=== PATIENT | female | born 1940 | race Caucasian/White ===

== ENCOUNTER → 2024-04-06 10:29 | Outpatient (REF) | payer MEDICARE, MEDICAID, SELFPAY ==
[2024-04-06 12:10] LABS: Glycohemoglobin (HgbA1c) 5.5 % (4.0-5.6)
== END ==
LOC: OLABN 10:29
PROVIDERS: ATTENDING PHYSICIAN Internal Medicine Geriatric Medicine
DX: E78.5 Hyperlipidemia, unspecified (principal); E16.2 Hypoglycemia, unspecified
CPT/HCPCS: 36415; 83036

== ENCOUNTER → 2024-11-22 19:15 | Outpatient (REF) | payer MEDICARE, MEDICAID, SELFPAY ==
[2024-11-23 11:53] LABS: ALT (SGPT) 71 U/L (0-35); AST (SGOT) 111 U/L (14-36); Albumin 3.8 g/dl (3.5-5.0); Alkaline Phosphatase 233 U/L (38-126); Blood Urea Nitrogen 30 mg/dl (7-17); Calcium 9.5 mg/dl (8.4-10.2); Carbon Dioxide 21 mmol/L (22-30); Chloride 111 mmol/L (98-107); Glucose 100 mg/dl (70-99); Potassium 4.4 mmol/L (3.5-5.1); Sodium 143 mmol/L (135-145); eGFR > 60.00
[2024-11-23 12:09] LABS: Band Neutrophils 16 % (0-3); Hematocrit 37.8 % (37.0-47.0); Lymphocytes 5 % (20-51); Mean Corp Hgb Conc. 31.7 g/dL (33.0-37.0); Mean Corpuscular Volume 88.1 fL (81.0-99.0); Mean Platelet Volume 12.8 fL (7.4-10.4); Monocytes 1 % (2-9); Platelet Count 288 10^3/uL (130-400); Red Blood Cell Count 4.29 10^6/uL (4.20-5.40); Segmented Neutrophils 78 % (42-75); White Blood Cell Count 14.9 10^3/uL (4.8-10.8)
[2024-11-23 12:11] LABS: Normal RBC Morphology Yes; Platelets Checked Yes; Total Cells Counted 100
[2024-11-23 13:35] LABS: Urine Albumin 4+ (Neg - Trace); Urine Bilirubin Negative (Negative); Urine Character Cloudy (Clear); Urine Color Amber; Urine Glucose Negative (Negative); Urine Ketone Negative (Negative); Urine Leukocyte 3+ (Negative); Urine Nitrite Negative (Negative); Urine Occult Blood 2+ (Negative); Urine Urobilinogen Negative (Neg - 1+)
[2024-11-23 13:46] LABS: Urine Bacteria Many (Negative); Urine Squamous Cell 0-2 /LPF (Few)
[2024-11-23 13:47] LABS: Urine White Cell 16-20 /HPF (0-5)
== END ==
LOC: OLABN 19:15
PROVIDERS: ATTENDING PHYSICIAN Internal Medicine Geriatric Medicine
DX: N18.9 Chronic kidney disease, unspecified (principal); A41.9 Sepsis, unspecified organism; R82.90 Unspecified abnormal findings in urine; R50.9 Fever, unspecified
CPT/HCPCS: 36415; 80053; 81003; 81015; 85025; 87086

== ENCOUNTER 2024-11-23 11:48 | Inpatient (IN) | payer OTHER, SELFPAY ==
[2024-11-23] VITALS (9 sets, daily range): BP systolic 77–124; BP diastolic 50–73; BMI 22.0
--- NOTE | 2024-11-23 08:44 | ED.GENMED ---
History of Present Illness
General
Chief Complaint: Fever
Time Seen by Provider: 11/23/24 08:34
History of Present Illness
History of Present Illness:
84-year-old female with history of dementia and chronic kidney disease presenting to the emergency department for fever. Patient arrives from nursing facility, reported to have a fever for the past 24 hours. Last dose of Tylenol was at midnight.
Per group home documentation, patient also has had decreased p.o. intake, was not eating her lunch yesterday, noted to be more sluggish, drooling and less responsive. Patient reportedly hypotensive by nursing facility. Patient unable to comply
with any questioning upon arrival, given her clinical condition and underlying dementia history. Patient arrives with POLST form, DNR/DNI
Phy Exam
Physical Exam
Physical Exam:
General: Well-appearing, no clinical signs of dehydration, nontoxic and in no acute distress
HEENT: protecting airway
Neck: appears supple
CV: Tachycardic, regular rhythm, no evidence of cyanosis
Resp: No accessory muscle use, no increased work of breathing
Abd: Soft and non-distended, no tenderness to palpation
Extremities: No deformities, no swelling
Neuro: alert, not oriented, no verbal communication. Not following commands
: deferred
Rectal: deferred
Psych: Normal affect
Skin: Intact
Sepsis
Sepsis Screening
Sepsis Assessment: Severe Sepsis
Sepsis Screening: Lactate >/=4mmol/L
Sepsis Screen
Sepsis Screen: Severe Sepsis
Date: 11/23/24
Time: 15:40
Course
Orders/Labs/Results
Orders:
Orders
11/23/24 08:35
Acetaminophen [Tylenol/Feverall] 650 mg .ROUTE .STK-MED ONE
11/23/24 08:42
Electrocardiogram (*1) Urgent
Reason for Study: Other
Other Reason for Exam: sepsis
EKG- Treatment ONCE
11/23/24 08:43
0.9% Sodium Chloride 1000 ml [Nss] 1,000 ml IV BOLUS
CR Chest - 2 Views Urgent
Comment:
Reason For Exam: sepsis
11/23/24 08:51
COVID-19 Antigen Urgent
Source: Nasal Swab
Complete Blood Count/With Diff Urgent
Comprehensive Metabolic Panel Urgent
Lactic Acid Q4H
Comment: CANCEL 2nd LACTIC ACID IF 1st LACTIC ACID IS LESS THAN 2
Manual Differential Urgent
PTT Urgent
Prothrombin Time Urgent
Blood Culture Q30M
CELY Source: Blood/Venous
Specimen Description:
Influenza A+B Rapid Molecular Urgent
CELY Source: Nasal Swab
Specimen Description:
11/23/24 08:54
Blood Culture Q30M
CELY Source: Blood/Venous
Specimen Description:
11/23/24 09:01
Urinalysis Reflex To Culture Urgent
Date Specimen was Collected: 11/23/24
Time Specimen was Collected: 08:58
Urine Microscopic Reflex Cult Urgent
Urine Culture Urgent
CELY Source: U
Specimen Description:
Date Specimen was Collected: 11/23/24
Time Specimen was Collected: 08:58
11/23/24 09:05
Acetaminophen [Tylenol/Feverall] 650 mg RECTAL NOW STA
11/23/24 09:39
0.9% Sodium Chloride 1000 ml [Nss] 1,000 ml IV BOLUS
11/23/24 09:42
Cefepime HCl [Maxipime] 2,000 mg IV NOW STA
11/23/24 09:45
Vancomycin [Vancocin] 1,500 mg 0.9% Sodium Chloride 500 ml [Nss] 500 ml IV NOW
11/23/24 11:11
Admit/Transfer Patient As Directed
Co-Sign Provider:
Level of Care: Inpatient admission
Assign to:: Telemetry
Physician / Group: Hospitalist
Diagnosis: sepsis
Reason for Telemetry: Arrhythmia
Date to Stop Telemetry: 11/26/24
Time to Stop Telemetry: 11:00
Reason for Hospitalization: .
Expected length of stay greater than two midnights?: Yes
ELOS- Estimated Length of Stay in days: 3
I certify the patient meets the requirements for IP care: Yes
11/23/24 11:13
Code Status As Directed
Resuscitation Status: Do not resuscitate
Reached after discussion with pt or family/Healthcare POA: Yes
DNR Bracelet Application ONCE
11/23/24 12:44
Acetaminophen [Tylenol/Feverall] 650 mg RECTAL Q6HPRN PRN
Ketorolac [Toradol] 15 mg IV Q8HPRN PRN
11/23/24 12:44
DX Deep Vein Thrombosis Video Routine
11/26/24 11:00
DC Protocol for Telemetry ONCE
Abnormal Lab Results
11/23/24 11/23/24
08:51 09:01
WBC 24.8 H 10^3/uL
(4.8-10.8)
RBC 4.17 L 10^6/uL
(4.20-5.40)
Hct 36.3 L %
(37.0-47.0)
RDW 14.8 H %
(11.5-14.5)
MPV 12.2 H fL
(7.4-10.4)
Abs Neuts (Manual) 23.5 H 10^3/uL
(1.4-6.5)
Segmented Neutrophils 83 H %
(42-75)
Band Neutrophils 12 H %
(0-3)
Lymphocytes (Manual) 2 L %
(20-51)
PT 15.1 H Sec
(11.4-14.6)
Chloride 114 H mmol/L
(98-107)
Carbon Dioxide 17 L mmol/L
(22-30)
BUN 29 H mg/dl
(7-17)
Glucose 123 H mg/dl
(70-99)
Lactic Acid 4.1 H* mmol/L
(0.7-2.0)
AST 86 H U/L
(14-36)
ALT 70 H U/L
(0-35)
Alkaline Phosphatase 199 H U/L
(38-126)
Ur Occult Blood Reflex 4+ A
(Negative)
Leukocyte Esterase Rfl 3+ A
(Negative)
Urine RBC 3-6 A /HPF
(0-2)
Urine WBC (Reflex) 11-15 A /HPF
(0-5)
Urine Bacteria (Reflex) Many A
(Negative)
Urine Albumin (Reflex) 3+ A
(Neg - Trace)
11/23/24 08:51
11/23/24 08:51
Vital Signs
Initial and Last Documented VS:
Initial Vital Signs
Temp Pulse Resp BP Pulse Ox
103.7 F H 152 32 106/65 93
11/23/24 08:37 11/23/24 08:37 11/23/24 08:37 11/23/24 08:37 11/23/24 08:37
Last Documented Vital Signs
Temp Pulse Resp BP Pulse Ox
103.7 F H 127 14 108/57 91
11/23/24 08:37 11/23/24 15:13 11/23/24 15:13 11/23/24 15:13 11/23/24 15:13
MDM/Problems Addressed
MDM/Problems Addressed:
84-year-old female with history of dementia and chronic kidney disease presenting for fever and decreased responsiveness. Vital signs on arrival significant for fever and tachycardia.
On exam, patient is in no acute distress, however is markedly tachycardic and fever meeting SIRS criteria. Unknown source of infection at this time. Will initiate septic workup with laboratory analysis, blood cultures, lactic acid. Will obtain
chest x-ray imaging, urinalysis. No systemic rash. No open wounds or sores. No tenderness to abdomen.
10:30 - with leukocytosis and elevated lactic acid, meeting criteria for severe sepsis. Blood pressure remains stable. Continuing IV fluids at full 30 cc/kg bolus. Urine does show signs of infection, pending chest x-ray. Will start
broad-spectrum antibiotics. In discussion with daughter at bedside, is okay with starting antibiotics at this time, however during admission, would like to begin discussions for potential hospice versus palliative care.
*Critical Care Note
Total Time (30-74mins, 75-104mins- exclusive of procedures): 37
comment:
The high probability of a clinically significant, sudden or life threatening deterioration of the infectious system(s), sepsis, required my full and direct attention, intervention and personal management. The aggregate critical care time was 37
minutes. This time is in addition to time spent performing reported procedures but includes the following:
[x] Data Review and interpretation
[x] Patient assessment and monitoring of vital signs
[x] Documentation
[x] Medication orders and management
ED Attending Note
-
Portions of this chart may have been created with voice recognition software.� Occasional wrong word or��sound alike� substitutions may have occurred due to the inherent limitations of voice recognition software.
Discharge Plan
Departure
Patient Disposition: Admit
Date of Disposition: 11/23/24
Time of Disposition: 11:02
Presentation/result/management discussed w/ accepting MD/DO: Hospitalist
Condition: Fair
Discharge Problem:
Severe sepsis, Urinary tract infection
Interventions
Interventions:
*Risk Screen - Suicide Last Done: 11/23/24 08:37
*General Assessment Last Done: 11/23/24 08:37
*Neglect/Abuse Screening Last Done: 11/23/24 08:37
*ED- Fall Risk Assessment Last Done: 11/23/24 08:49
*ED COVID-19 Vaccine History Last Done: 11/23/24 08:37
*Nursing Disposition Last Done: 11/23/24 14:53
ED- Neurological Assessment Last Done: 11/23/24 09:10
ED-Skin Assessment Last Done: 11/23/24 09:10
Discharge Date and Time
Discharge Date/Time: 11/23/24 14:54
[2024-11-23] MEDS: NSS 1000 IV ×2 (09:00→10:50)
[2024-11-23] MEDS: TYLENOL/FEVERALL 650 MG RECTAL ×2 (09:06→15:15)
[2024-11-23 09:24] LABS: Hematocrit 36.3 % (37.0-47.0); Mean Corp Hgb Conc. 33.1 g/dL (33.0-37.0); Mean Corpuscular Hgb 28.8 pg (27.0-31.0); Mean Corpuscular Volume 87.1 fL (81.0-99.0); Mean Platelet Volume 12.2 fL (7.4-10.4); Platelet Count 285 10^3/uL (130-400); Red Blood Cell Count 4.17 10^6/uL (4.20-5.40); Red Cell Dist. Width 14.8 % (11.5-14.5); White Blood Cell Count 24.8 10^3/uL (4.8-10.8)
[2024-11-23 09:26] LABS: Urine Albumin 3+ (Neg - Trace); Urine Bilirubin Negative (Negative); Urine Character Cloudy (Clear); Urine Color Yellow; Urine Glucose Negative (Negative); Urine Ketone Negative (Negative); Urine Leukocyte 3+ (Negative); Urine Nitrite Negative (Negative); Urine Occult Blood 4+ (Negative); Urine Urobilinogen Negative (Neg - 1+)
[2024-11-23 09:28] LABS: AST (SGOT) 86 U/L (14-36); Albumin 3.8 g/dl (3.5-5.0); Alkaline Phosphatase 199 U/L (38-126); Blood Urea Nitrogen 29 mg/dl (7-17); Calcium 9.6 mg/dl (8.4-10.2); Carbon Dioxide 17 mmol/L (22-30); Chloride 114 mmol/L (98-107); Estimated Creatinine Clearance 37 ml/min; Glucose 123 mg/dl (70-99); Potassium 4.3 mmol/L (3.5-5.1); Sodium 144 mmol/L (135-145); Total Bilirubin 0.6 mg/dl (0.2-1.3); Total Protein 6.9 g/dl (6.3-8.2); eGFR > 60.00
[2024-11-23 09:29] LABS: INR 1.16; PT 15.1 Sec (11.4-14.6)
[2024-11-23 09:30] LABS: APTT 26.7 Sec (23.4-35.0)
[2024-11-23 09:33] LABS: Lactic Acid 4.1 mmol/L (0.7-2.0)
[2024-11-23 09:37] LABS: Urine Bacteria Many (Negative); Urine Squamous Cell 0-2 /LPF (Few)
[2024-11-23 09:44] LABS: COVID-19 Antigen Negative (Negative)
[2024-11-23 10:03] LABS: Absolute Neutrophils -Man Diff 23.5 10^3/uL (1.4-6.5); Anisocytosis 1+; Band Neutrophils 12 % (0-3); Hypochromasia 1+; Lymphocytes 2 % (20-51); Monocytes 3 % (2-9); Normal RBC Morphology No; Nucleated Red Blood Cells 1 (-); Platelets Checked Yes; Segmented Neutrophils 83 % (42-75)
[2024-11-23 10:04] LABS: Polychromasia 1+; Total Cells Counted 100
[2024-11-23 10:10] LABS: ALT (SGPT) 70 U/L (0-35)
[2024-11-23] MEDS: VANCOCIN 530 MG IV (11:06)
[2024-11-23] MEDS: MAXIPIME 2000 MG IV (11:06)
--- NOTE | 2024-11-23 11:10 | HPS.HSE ---
Family Physician
-
Family Physician: Ross Mitchell DO
Chief Complaint
-
Patient was sent from senior living for fevers
History of Present Illness
84 years old female came in from senior living. History is taken from the ER physician and daughter at the bedside. Patient has advanced dementia and unable to provide history. Patient had fever in the last 24 hours. No report of nausea,
vomiting, chest pain. No report of hypoxia. She was noted to have hypotension. In the emergency room, she was noted to have lactic acidosis, leukocytosis, fever and hypotension. Patient was diagnosed with septic shock for presumed urinary source.
Medical History
Past Medical History
Past Medical History: Reports Other (Advanced dementia, hypertension, hyperlipidemia.)
Past Surgical History: Reports Other (No recent major surgery)
Social History
Unable to obtain full social history at this time due to: Dementia
Living: Correction
Family History
Family History: Unable to Obtain (Dementia)
Allergies / Home Medications
Allergies reflects when Allergies were last updated in [facility].
Home Medications with original date entered in [facility]
Allergy/Medication List:
Allergies
Allergy/AdvReac Type Severity Reaction Status Date / Time
Sulfa (Sulfonamide Allergy Unknown Verified 11/23/24 08:42
Antibiotics)
Home Medications
acetaminophen 325 mg tablet (Tylenol) 650 mg PO Q4HPRN PRN mild pain 11/23/24
acetaminophen 500 mg tablet (Tylenol Extra Strength) 500 mg PO BID 11/23/24
amlodipine 5 mg tablet (Norvasc) 5 mg PO DAILY 11/23/24
aripiprazole 5 mg tablet (Abilify) 5 mg PO DAILY 11/23/24
bisacodyl 10 mg rectal suppository (Dulcolax (bisacodyl)) 10 mg SC [id number] PRN if no bm aftr mom 11/23/24
calcium carbonate (Calcium 600) 600 mg PO DAILY 11/23/24
donepezil 5 mg tablet 5 mg PO DAILY 11/23/24
ergocalciferol (vitamin D2) 1,250 mcg (50,000 unit) capsule 1,250 mcg PO QMONTH 11/23/24
lidocaine 4 % topical patch 1 patch topical WESA b/l knee 11/23/24
magnesium hydroxide 400 mg/5 mL oral suspension (Milk of Magnesia) 2,400 mg PO HSPRN PRN constipation 11/23/24
sertraline 25 mg tablet 12.5 mg PO MOWEFR 11/23/24
simvastatin 10 mg tablet (Zocor) 10 mg PO HS 11/23/24
Review of Systems
-
Unable to obtain full review of systems at this time due to: Dementia
Physical Exam
Vital Signs
Vital Signs
Temp Pulse Resp BP Pulse Ox
103.7 F H 152 32 106/65 96
11/23/24 08:37 11/23/24 08:37 11/23/24 08:37 11/23/24 08:37 11/23/24 09:10
Physical Exam
General: No Apparent Distress, Fever and Appears Chronically Ill
HEENT: Other (Poor dentition, dry mucous membrane, no deformities noted in head/neck/)
Respiratory: Decreased Breath Sounds; No Wheezes
Cardiac: S1/S2 and Tachycardia
GI: Soft, Non Tender, Non Distended and Normal Bowel Sounds
Genito-urinary: Turbid Urine
Musculoskeletal: No Clubbing, No Cyanosis and No Edema
Skin: No Jaundice
Neuro: Other (She opens her eyes to tactile stimuli, nonverbal, did not follow commands. Per daughter, patient seemed at baseline.)
Psych: Apparent Dementia
Laboratory Results
-
11/23/24 08:51
11/23/24 08:51
Laboratory Results
PT 15.1 Sec (11.4-14.6) H 11/23/24 08:51
INR 1.16 11/23/24 08:51
APTT 26.7 Sec (23.4-35.0) 11/23/24 08:51
Lactic Acid 4.1 mmol/L (0.7-2.0) H* 11/23/24 08:51
Total Bilirubin 0.6 mg/dl (0.2-1.3) 11/23/24 08:51
AST 86 U/L (14-36) H 11/23/24 08:51
ALT 70 U/L (0-35) H 11/23/24 08:51
Alkaline Phosphatase 199 U/L (38-126) H 11/23/24 08:51
Impression/Plan
-
84 years old female presented with fever and hypotension was found to have septic shock
#Septic shock with lactic acidosis
Likely source urinary tract infection. Chest radiography did not show pneumonia. No history of cough or hypoxia per records.
No history of GI problem as vomiting or diarrhea.
No hematuria.
Negative COVID and influenza screen
Admit the patient to the hospital/telemetry floor
Order blood culture and urine culture
Broad-spectrum antibiotics
Volume resuscitation with IV fluid
Monitor closely, trend lactic acid
Trend temperature curve and WBC count
Tylenol as needed for fever. IV Toradol for high fevers
# Elevated liver enzyme, likely secondary to sepsis/septic shock. No abdominal distention or tenderness on examination.
# Advanced dementia, nonverbal
Baseline is unable to provide history or express herself.
# Goals of care discussion
I had discussion with family/daughter at bedside
Patient has advanced dementia with poor quality of life/ unable to recognize family or hold conversation.
CODE STATUS DNR/DNI
Per daughter, patient would not wanter to live like this with advanced dementia, would want comfort care.
Treating acute illness as sepsis will not improve quality of life.
Discussed hospice goals and principles with daughter. Consulted hospice nurse
We will do hospice admission if family decides on hospice daughter agreed to use morphine for comfort care.
Total critical time spent to see the patient, examine the patient, review data and lab results, discuss treatment plan with patient, daughter, ER doctor and nursing staff around 79 minutes
--- NOTE | 2024-11-23 12:11 | HOSPNOTE ---
Spoke with family and family is in agreement with hospice and the philosophy. The patient will remain here and be admitted inpatient hospice. Consents are signed and Cm aware and referral received. Bed requested on [facility]. Other family members are
on there way. Supply Chain Generalist was called for spiritual support and will see family. Patient will be seen daily by hospice.
--- NOTE | 2024-11-23 12:29 | CM ---
Pt from [facility]
Hospice consulted in the ED and planned for GIP hospice admission
[2024-11-23] MEDS: MORPHINE SULFATE 2 MG IV ×7 (12:49→23:23)
[2024-11-23] MEDS: TORADOL 15 MG IV (12:54)
[2024-11-23] MEDS: MORPHINE 100 IV (13:16)
--- NOTE | 2024-11-23 15:47 | PTCARENOTE ---
Received pt from ED, admission complete, 101.9 temperature treated with rectal tylenol, Morphine gtt on step 1 placed in lockbox with green slip from pharmacy after verifying with 2nd RN, family provided with education and emotional support, comfort
box ordered from dietary. No new orders at this time, pt resting comfortably in bed with family and call hernandez at bedside.
[2024-11-23] MEDS: ATIVAN 0.5 MG IV (20:51)
[2024-11-23] MEDS: NSS (PRESERVATIVE FREE) 0.25 ML IV (20:51)
[2024-11-24] MEDS: MORPHINE SULFATE 2 MG IV ×4 (00:59→04:48)
[2024-11-24] MEDS: NSS (PRESERVATIVE FREE) 0.25 ML IV ×2 (04:09→08:00)
[2024-11-24] MEDS: ATIVAN 0.5 MG IV ×2 (04:10→08:01)
[2024-11-24] MEDS: MORPHINE SULFATE 4 MG IV ×5 (05:14→08:00)
[2024-11-24] MEDS: TORADOL 15 MG IV (05:15)
[2024-11-24 07:05] VITALS: BP 81/52
--- NOTE | 2024-11-24 08:35 | W.PN.HOSP.TC ---
Today's Communication/Plan
-
c/w IV Morphine gtt
c/w PRN Ativan & Morphine
Assessment / Plan
Assessment / Plan
Physical Exam
General: Appears Chronically Ill. Agonal breathing at times
HEENT: Other (Poor dentition, dry mucous membrane, no deformities noted in head/neck/)
Respiratory: Decreased Breath Sounds; No Wheezes
Cardiac: S1/S2 and Tachycardia
GI: Soft, Non Tender, Non Distended
Genito-urinary: Turbid Urine
Musculoskeletal:No Edema
Skin: No Jaundice
Neuro: Sedated
Psych: No agitation
A/P
# Sepsis/septic shock
# Gram-negative bacteremia
# Urinary tract infection
# Advanced dementia/nonverbal
# Lactic acidosis
# Ischemic transaminitis
Continue comfort care/hospice care. Currently on intravenous morphine with as needed morphine and Ativan. Seems uncomfortable at times, will increase Ativan to 1 mg as needed
Discussed with daughter at bedside, family priority not to see the patient suffering
Discussed with nursing staff
Total time spent to see the patient, examine the patient, discussed treatment plan with family, nursing staff around 55 minutes
Anticipated Discharge: 24 - 48 hours
Subjective/Interval History
-
Date of Service: November 24, 2024
Objective Data
-
Vital Signs:
Vital Signs
Temp Pulse Resp BP Pulse Ox
98.3 F 99 14 81/52 74
11/24/24 07:05 11/24/24 07:05 11/24/24 07:05 11/24/24 07:05 11/24/24 07:05
I&O
11/23/24 11/24/24 11/25/24
06:59 06:59 06:59
Intake Total
Balance
[2024-11-24] MEDS: NSS (PRESERVATIVE FREE) 0.5 ML IV ×4 (09:37→17:08)
[2024-11-24] MEDS: MORPHINE SULFATE 6 MG IV ×3 (09:37→11:27)
[2024-11-24] MEDS: ATIVAN 1 MG IV ×4 (09:37→17:07)
--- NOTE | 2024-11-24 10:07 | CHAP ---
Emotional and spiritual support ongoing. prayer blanket given and prayers shared as requested.
--- NOTE | 2024-11-24 11:22 | CM ---
Chart reviewed
Remains GIP hospice with Hospice following
CM available to pt/family as needed
Plan - GIP hospice
--- NOTE | 2024-11-24 12:20 | HOSPNOTE ---
Patient is on a morphine drip and appears to be comfortable and imminent. Family is bedside and emotional support provided. The floor RN will medicate prior to any care or repositioning. The patient continues to be inpatient appropriate for IV
medications for pain and anxiety and agitation. We will see patient daily.
[2024-11-24] MEDS: MORPHINE SULFATE 8 MG IV ×3 (12:40→14:50)
--- NOTE | 2024-11-24 13:50 | HOSPNOTE ---
Marketer visited 84 year old patient to conduct Initial CORPORATE FITNESS PROGRAM COORDINATOR Assessment. Patient admitted onto [facility] Level of Care and Hospice Services with the Primary Diagnosis of Sepsis. Nurse reported patient is transitioning, is comfortable, and
medications administered. CORPORATE FITNESS PROGRAM COORDINATOR knocked on patient's door and entered the room. CORPORATE FITNESS PROGRAM COORDINATOR greeted family that was at the bedside (Daughter, Son, [id number], and 2 Granddaughters) and introduced herself and explain Repair Mechanic role as it relates to
the Hospice Team. Patient lying in bed and appears to be resting comfortably. CORPORATE FITNESS PROGRAM COORDINATOR greeted patient. Patient's Daughter Rani is the Primary Caregiver and POA, she reported patient isn't comfortable because of the gurgling. Rani reported she called for
the nurse to give patient morphine. CORPORATE FITNESS PROGRAM COORDINATOR checked to see where Nurse was and informed family nurse will be in shortly. Rani reported patient is getting morphine every 20 minutes along with the drip. Patient had 2 daughters (Rani and Tiffanie) and 1 son
(Ernie), youngest daughter Tiffanie passed 10 years ago. Rani reported Ernie is patient's favorite and family agreed as patient stated this repeatedly. Patient has 8 grand children and 6 great grandchildren. Rani reported family is supportive and
coping appropriately. 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 Patient enjoyed caring for her children and grand children. Patient enjoyed wine and movies. Patient loved music, Stat [employer],
Fran Recinos, and Umberto Tramaine. Patient had her own set at [employer] as she visited frequently, the dietitian teaching knew her and her favorite drink. Patient is Orthodox, no mandaeism affiliation. Patient wishes to be cremated and family is going to
utilize [employer]. Family declined Bereavement Services at this time. Nurse came in to assess patient and to administer medication. Emotional Support Provided.
Patient meets [facility] criteria for SN assessments, management of pain, anxiety, and agitation that could not be managed in an Outpatient setting.
CORPORATE FITNESS PROGRAM COORDINATOR to continue to visit once a week while on [facility] Level of Care to provide supportive services and to monitor for additional services.
--- NOTE | 2024-11-24 15:43 | HOSPNOTE ---
"Misty was sleeping, non-responsive. She had some labored breathing, and daughter Shanti rang for the nurse. Daughter in law Andreia was also present. Shanti stated that they would like prayers commending Misty to God. She believes her mother, "Dread"who has Restoration ivana, is peaceful and ready to be with God. Machine Sign Writer provided emotional and spiritual support through presence, dialogue, Scripture reading and prayer. Will continue support through weekly visits."
[2024-11-24] MEDS: MORPHINE 100 IV (15:54)
[2024-11-24] MEDS: MORPHINE SULFATE 10 MG IV ×3 (15:56→19:49)
[2024-11-24 19:25] VITALS: BP 55/33
--- NOTE | 2024-11-24 20:40 | W.PN.DEATH ---
Pronouncement of
-
Called to see patient to pronounce.
No spontaneous heart tones or respirations noted.
Patient not responsive to verbal stimuli.
Patient is pronounced .
Time of : 20:37
Date of : 11/24/24
Cause of : septic shock d/t urinary tract infection
Family Notified: Yes (family at bedside)
--- NOTE | 2024-11-25 06:29 | W.DCSUMMARY ---
Discharge Summary
Discharge Data
Date of Admission: 11/23/24
Date of Discharge: 11/24/24
-
Pending Results: No
Hospital Course
84 years old female admitted from retirement with sepsis/septic shock. Patient had underlying advanced dementia. Patient had lactic acidosis and gram-negative bacteremia. Family decided to pursue comfort care/hospice. Family met with hospice
nurse and patient was admitted to inpatient hospice services. She received intravenous morphine and other comfort medications. Patient peacefully surrounded by her family. Help and support offered to the family.
Discharge Plan
-
Patient Disposition:
Date/Time
Date/Time: 11/24/24 20:37
Discharge Date and Time
Discharge Date/Time: 11/24/24 20:37
Print Language: INDIAN
== END 2024-11-24 20:37 | disposition expired | DRG 871 ==
LOC: 2 NORTH 11:48
PROVIDERS: ADMITTING PHYSICIAN Internal Medicine; EMERGENCY PHYSICIAN Student in an Organized Health Care Education/Training Program; FAMILY PHYSICIAN Student in an Organized Health Care Education/Training Program
DX: A41.89 Other specified sepsis (principal); R65.21 Severe sepsis with septic shock; E87.20 Acidosis, unspecified; N39.0 Urinary tract infection, site not specified; B96.89 Other specified bacterial agents as the cause of diseases classified elsewhere; Z51.5 Encounter for palliative care; F03.90 Unspecified dementia, unspecified severity, without behavioral disturbance, psychotic disturbance, mood disturbance, and anxiety; E78.5 Hyperlipidemia, unspecified; I12.9 Hypertensive chronic kidney disease with stage 1 through stage 4 chronic kidney disease, or unspecified chronic kidney disease; N18.9 Chronic kidney disease, unspecified; Z66 Do not resuscitate; Z11.52 Encounter for screening for COVID-19
CPT/HCPCS: 71046; 80053; 81003; 81015; 83605; 85025; 85610; 85730; 87040; 87086; 87149; 87150; 87186; 87205; 87502; 87811; 93005; 96365; 96366; 96375; 99291